=== PATIENT | male | born 1960 | race Caucasian/White ===

== ENCOUNTER 2020-11-21 02:47 | Emergency (ER) | payer OTHER ==
[~2020-11-21 02:47] MED LIST: ASPIRIN CHEWABL81 MG PO; LISINOPRIL-HCT1 EACH PO; METOPROLOL SUCC50 MG PO; NEXIUM20 M1 PO; NORCO 5-325 TA1 EACH PO; PRILOSEC20 MG PO; SIMVASTATIN40 MG PO; ZOFRAN4 MG PO; ZOFRAN8 MG PO; ZYRTEC10 MG PO
[2020-11-21] MEDS ORDERED: NORCO 5-325 TA1 EACH PO (04:58)
== END 2020-11-21 05:03 | disposition home or self-care (01) ==
LOC: FER 02:47
DX: S43.402A Unspecified sprain of left shoulder joint, initial encounter (principal); I10 Essential (primary) hypertension; Z86.14 Personal history of Methicillin resistant Staphylococcus aureus infection; W19.XXXA Unspecified fall, initial encounter
CPT/HCPCS: 73030